=== PATIENT | male | born 1960 | race Caucasian/White ===

== ENCOUNTER 2017-11-11 14:57 | Emergency (ER) | payer MEDICARE, OTHER ==
[2017-11-11] MEDS ORDERED: SODIUM BICARBONATE 8.4% INJ 50 MEQ/50 ML SYR IV ONE (14:58)
[2017-11-11] MEDS ORDERED: DEXTROSE 50% IN WATER 50 ML SYRINGE IV ONE (14:58)
[2017-11-11] MEDS ORDERED: EPINEPHrine HCL (1:10,000) 1 MG/10 ML SYRINGE IV ONE (14:58)
[2017-11-11] MEDS ORDERED: NALOXONE HCL 4 MG/10 ML MDV IV ONE (14:58)
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
== END 2017-11-11 17:29 | disposition expired ==
LOC: PHED 14:57
DX: I46.9 Cardiac arrest, cause unspecified (principal); J44.9 Chronic obstructive pulmonary disease, unspecified; E11.9 Type 2 diabetes mellitus without complications; Z86.73 Personal history of transient ischemic attack (TIA), and cerebral infarction without residual deficits; Z86.69 Personal history of other diseases of the nervous system and sense organs
CPT/HCPCS: 31500; 92950; 94770; 99285; J0171; J2310